=== PATIENT | male | born 1985 | race Caucasian/White ===

== ENCOUNTER 2020-07-26 03:31 | Emergency (ER) | payer MEDICAID, SELFPAY ==
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
[2020-07-26 03:42] VITALS: BP 141/84; BP 152/108; PULSE 106; PULSE 96; RESP 20; TEMP 37.3; O2SAT 95; O2SAT 97; BMI 23.2
--- NOTE | 2020-07-26 03:56 | PC.NURSE ---
Off to CT on hospital bed.
--- NOTE | 2020-07-26 04:07 | PC.NURSE ---
Off to XRay on hospital bed.
[2020-07-26] MEDS: Lidocaine HCl 2 % MPF 5 ML VIAL SUBCUT (04:31)
--- NOTE | 2020-07-26 04:37 | PC.NURSE ---
MD at bedside for wound repair, 1 suture applied to 5th finger on right hand. Pt medicated per MAR with Tetanus. licensed psychiatric technician at bedside to apply finger splint.
[2020-07-26] MEDS: Ibuprofen 600 MG TABLET PO (05:00)
[2020-07-26 05:01] VITALS: BP 127/85; PULSE 76; RESP 20
--- NOTE | 2020-07-26 05:09 | PC.NURSE ---
Pt medicated per request with Ibuprofen. VSS. Provided with DC paperwork.
== END 2020-07-26 05:11 | disposition home or self-care (01) ==
LOC: HO.ED 04:29
PROVIDERS: Emergency Provider Emergency Medicine; PCP Nurse Practitioner Primary Care
DX: S02.2XXA Fracture of nasal bones, initial encounter for closed fracture (principal); S60.512A Abrasion of left hand, initial encounter; S60.511A Abrasion of right hand, initial encounter; G44.309 Post-traumatic headache, unspecified, not intractable; Y04.8XXA Assault by other bodily force, initial encounter; Y93.9 Activity, unspecified; Y92.9 Unspecified place or not applicable; Y99.9 Unspecified external cause status; Z23 Encounter for immunization
CPT/HCPCS: 70450; 70486; 73130; 90471; 90715; 99284

== ENCOUNTER 2020-08-22 15:04 | Outpatient (REF) | payer MEDICAID, SELFPAY | END 2020-08-22 15:05 | disposition home or self-care (01) | LOC: HO.HOSX 15:04 | PROVIDERS: Visit Provider Orthopaedic Surgery | DX: Z13.89 Encounter for screening for other disorder (principal) ==

== ENCOUNTER 2020-09-02 18:53 | Emergency (ER) | payer MEDICAID, SELFPAY ==
[2020-09-02 19:05] VITALS: BP 137/91; PULSE 77; RESP 16; TEMP 36.6; O2SAT 98; BMI 23.2
== END 2020-09-02 20:19 | disposition left against medical advice (07) ==
PROVIDERS: Emergency Provider Emergency Medicine; PCP Nurse Practitioner Primary Care
DX: M79.641 Pain in right hand (principal)
CPT/HCPCS: 99282

== ENCOUNTER → 2020-09-06 13:25 | Outpatient (BNVA) | payer MEDICAID, SELFPAY | PROVIDERS: Visit Provider Orthopaedic Surgery | DX: M79.644 Pain in right finger(s) (principal); S63.601A Unspecified sprain of right thumb, initial encounter | CPT/HCPCS: 99202 ==

== ENCOUNTER 2021-02-03 12:01 | Emergency (ER) | payer MEDICAID, SELFPAY ==
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
[2021-02-03 12:11] VITALS: BP 153/87; PULSE 104; RESP 16; TEMP 37.1; O2SAT 95; BMI 23.1
[2021-02-03 12:19] VITALS: BP 142/98; PULSE 111; O2SAT 94
--- NOTE | 2021-02-03 12:36 | ED_ITS ---
HPI - Extremity Injury (Lower) General Chief Complaint: Extremity Injury, Lower Stated Complaint: right knee pain s/p fall Time Seen by Provider: 02/03/21 12:20 Source: patient Mode of arrival: ambulatory History of Present Illness HPI Narrative: 35-year-old male with a past medical history of ADD, ADHD, asthma, bipolar, substance abuse, s/p right knee arthroscopy, presenting to the ED complaining right knee pain s/p dancing last night and knee popping out of place, states friend relocated it. Admits this has happened in the past. Reports pain with bearing weight. Denies injury to other area, numbness, tingling, weakness complaint: knee injury Related Data Home Medications Medication Instructions Recorded Confirmed aripiprazole 2 mg tablet (Abilify) 2 mg PO DAILY 09/06/20 clonazepam 1 mg tablet (Klonopin) 1 mg PO BID 09/06/20 dextroamphetamine-amphetamine 30 30 mg PO BID 09/06/20 mg tablet (Adderall) paroxetine HCl [Paxil] PO 09/06/20 quetiapine 25 mg tablet (Seroquel) 25 mg PO DAILY 09/06/20 Previous Rx's Medication Instructions Recorded acetaminophen 500 mg tablet 500 mg PO Q6H PRN #20 tab 02/03/21 (Tylenol Extra Strength) ketorolac 10 mg tablet 10 mg PO TID PRN 5 Days #15 tab 02/03/21 Allergies Allergy/AdvReac Type Severity Reaction Status Date / Time codeine [CODEINE] Allergy Unknown HIVES Verified 09/02/20 19:03 Review of Systems Review of Systems: Constitutional: No Fever, No Chills Musculoskeletal: + joint pain, No Myalgias, + Joint Swelling Skin: No Skin Lesions, No rash Neuro: No Weakness, No Numbness, No Paresthesias Yes all other systems are reviewed and are negative [facility] Past Medical History Attestation statement: The following information was validated with the patient. 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 Exam Vital Signs: Vital Signs: Last Vital Signs Temp 98.8 F 02/03/21 12:11 Pulse 104 H 02/03/21 12:11 Resp 16 02/03/21 12:11 BP 153/87 H 02/03/21 12:11 Pulse Ox 95 02/03/21 12:11 Body Mass Index 23.1 Const: General: cooperative and healthy appearing Orientation/consciousness: patient oriented x3 Limitations: no limitations HENMT: Head: Yes normal to inspection Ears: hearing grossly normal bilaterally General nose exam: Normal external nose present Face and sinus: Yes normal facial exam Eyes: General: appearance normal, both eyes and all related structures EOM: EOMs intact bilaterally Neck: Neck: Yes normal visual inspection Resp: Effort & Inspection: normal respiratory effort and no respiratory distress Cardio: Rate: regular rate Peripheral pulses: dorsalis pedis present Skin: Rashes: no rashes Wounds: no wounds Neuro: General: patient oriented x3 Gait exam (Neuro): Normal gait present Extrem: Other: Right knee with notable swelling greater to medial aspect. Tender to palpation. Decreased flexion secondary to pain. Neurovascularly intact distally. No appreciable deformity. No erythema/warmth Course Course Course Narrative: XR knee RT 3V IMPRESSION: Right knee effusion. No significant bony abnormality identified. >> patient placed in knee immobilizer and supplied with crutches, is to follow- up with orthopedics MDM - Extremity Injury (Lower) MDM Narrative Medical decision making narrative: 35-year-old male with a past medical history of ADD, ADHD, asthma, bipolar, substance abuse, s/p right knee arthroscopy, presenting to the ED complaining right knee pain s/p dancing last night and knee popping out of place. On exam mildly tachycardic likely from pain, physical exam as above. Concern for possible knee dislocation/relocation vs l igamentous/tendon injury or meniscal injury. Rule out fracture Plan: X-rays, knee immobilizer/crutches, orthopedic follow-up Medical Records Attestation: I reviewed the patient's medical records. Discharge Plan Discharge Clinical Impression: Effusion of right knee Patient Disposition: Home, Self-Care Instructions: Swollen Knee Joint (ED) Additional Instructions: Your x-ray showed a knee effusion, wear knee immobilizer at home as needed, use crutches as needed Please follow-up with orthopedics Ketorolac is in anti-inflammatory/pain medication, take with food In addition take Tylenol If pain persist or worsen/becomes unbearable, please return to the ED Prescriptions: New ketorolac 10 mg tablet 10 mg PO TID PRN (Reason: pain) 5 Days Qty: 15 RF: 0 acetaminophen [Tylenol Extra Strength] 500 mg tablet 500 mg PO Q6H PRN (Reason: pain or fever) Qty: 20 RF: 0 Referrals: Leticia Marie PA-C [Physician [employer] Crusher And Washer] - 5 days
[2021-02-03] MEDS: Ketorolac Tromethamine 15 MG/ML VIAL 30 MG IM (13:22)
== END 2021-02-03 13:52 | disposition home or self-care (01) ==
PROVIDERS: Emergency Provider Emergency Medicine; PCP Nurse Practitioner Primary Care
DX: M25.461 Effusion, right knee (principal); M25.561 Pain in right knee
CPT/HCPCS: 73562; 99283; J1885

== ENCOUNTER 2021-04-08 10:22 | Emergency (ER) | payer MEDICAID, SELFPAY ==
[2021-04-08 10:27] VITALS: BP 142/96; PULSE 64; RESP 18; TEMP 36.8; O2SAT 98; BMI 21.7
[2021-04-08 12:15] LABS: MANUAL DIFF FLAG NO
[2021-04-08 12:16] LABS: Basophils Absolute Auto 0.1 X10*3/uL (0.0-0.2); Basophils Percent Auto 0.5 % (0-2); Eosinophils Absolute Auto 0.2 X10*3/uL (0.0-0.4); Eosinophils Percent Auto 1.2 % (0-4); Hematocrit 47.3 % (42.0-52.0); Hemoglobin 16.5 g/dl (14.0-18.0); Imm Gran Pct Auto 0.8 % (0.0-0.4); Lymphocytes Absolute Auto 3.3 X10*3/uL (1.2-4.9); Lymphocytes Percent Auto 25.6 % (20-40); Mean Corpuscular HGB Conc 34.9 g/dl (31.0-36.0); Mean Corpuscular Hemoglobin 31.4 pg (27.0-33.0); Mean Corpuscular Volume 90.1 fL (80.0-98.0); Monocytes Absolute Auto 1.3 X10*3/uL (0.1-1.2); Monocytes Percent Auto 10.5 % (2-11); Neutrophils Absolute Auto 7.83 x10*3/uL (2.0-8.3); Neutrophils Percent Auto 61.4 % (45-73); Platelet Count 413 X10*3/uL (160-400); Red Blood Count 5.25 X10*6/uL (4.60-5.80); Red Cell Distribution Width 12.6 % (11.0-16.0); White Blood Count 12.7 X10*3/uL (4.8-10.8)
[2021-04-08 12:18] LABS: Appearance Urine CLEAR; Color Urine YELLOW; Glucose Urine UA NEG (NEG); Leukocyte Esterase Urine NEG (NEG); Nitrite Urine NEG (NEG); Specific Gravity - Urine >= 1.030 (1.005-1.025); UACC Culture Trigger NO; Urine Blood TRACE (NEG); Urine Ketones NEG (NEG); Urine Protein 1+ MG/DL (NEG-TRACE)
[2021-04-08 12:31] LABS: Alanine Aminotransferase 12 U/L (0-40); Albumin Level 4.8 g/dL (3.5-5.0); Alkaline Phosphatase 91 U/L (39-117); Anion Gap 13 (12-20); Aspartate Amino Transferase 14 U/L (5-37); Bilirubin Direct 0.4 mg/dL (0.0-0.5); Bilirubin Total 1.2 mg/dL (0.0-1.0); Blood Urea Nitrogen 10 mg/dL (9-16); Calcium 10.1 mg/dL (8.4-10.2); Carbon Dioxide 29 mmol/L (22-29); Chloride 103 mmol/L (96-108); Creatinine Clr Calc Pharmacy 95.8; Estimated Glomerular Filt Rate > 60; Glucose Random 117 mg/dL (60-115); Lipase 64 U/L (8-78); Potassium 4.1 mmol/L (3.3-5.1); Sodium 141 mmol/L (135-145); Total Protein 7.6 g/dL (6.5-8.0)
[2021-04-08 12:37] LABS: Mucus Urine 1+ /LPF; RBC Urine 0 /HPF (0)
[2021-04-08 12:38] LABS: Amorphous Sediment Urine TRACE /LPF; WBC Urine 0-2 /HPF (0-4)
--- NOTE | 2021-04-08 12:56 | ED.ABDPAIN ---
HPI - Abdominal Pain General Chief Complaint: Abdominal Pain Stated Complaint: abd pain Time Seen by Provider: 04/08/21 12:08 Source: patient Mode of arrival: ambulatory Limitations: no limitations History of Present Illness HPI narrative: 35-year-old male here with complaints of generalized abdominal pain with 3 episodes of vomiting since last evening. No diarrhea, constipation, urinary symptoms, fevers, chills. Patient tells me ate some bad ham last night and since then he has had pain and vomiting. Related Data Home Medications Medication Instructions Recorded Confirmed aripiprazole 2 mg tablet (Abilify) 2 mg PO DAILY 09/06/20 clonazepam 1 mg tablet (Klonopin) 1 mg PO BID 09/06/20 dextroamphetamine-amphetamine 30 30 mg PO BID 09/06/20 mg tablet (Adderall) paroxetine HCl [Paxil] PO 09/06/20 quetiapine 25 mg tablet (Seroquel) 25 mg PO DAILY 09/06/20 Previous Rx's Medication Instructions Recorded acetaminophen 500 mg tablet 500 mg PO Q6H PRN #20 tab 02/03/21 (Tylenol Extra Strength) ketorolac 10 mg tablet 10 mg PO TID PRN 5 Days #15 tab 02/03/21 ondansetron HCl 4 mg tablet 4 mg PO Q8H PRN #10 tab 04/08/21 (Zofran) Allergies Allergy/AdvReac Type Severity Reaction Status Date / Time codeine [CODEINE] Allergy Unknown HIVES Verified 09/02/20 19:03 Review of Systems Review of Systems Yes all other systems are reviewed and are negative Constitutional: Reports no additional constitutional complaints, Denies body ache(s), Denies chills, Denies fever(s), Denies headache(s) and Denies weakness Eyes: Reports no additional eye complaints and Denies change in vision Reports system reviewed and no additional complaints, except as documented, Denies dizziness, Denies headache(s), Denies nasal congestion, Denies nasal discharge and Denies neck pain Cardiovascular: Reports no additional cardiovascular complaints, Denies chest pain, Denies leg edema and Denies dyspnea Respiratory: Reports no additional respiratory complaints, Denies cough and Denies dyspnea Gastrointestinal: Reports no additional gastrointestinal complaints, Reports abdominal pain, Denies diarrhea, Reports nausea and Reports vomiting Genitourinary: Denies urinary incontinence Musculoskeletal: Reports no additional musculoskeletal complaints, Denies back pain, Denies arthralgias, Denies joint swelling, Denies neck pain, Denies numbness and Denies tingling Skin/Breast: Reports system reviewed and no additional complaints, except as docu and Denies rash Reports system reviewed and no additional complaints, except as documented, Denies Abnormal speech present, Denies dizziness, Denies headache(s), Denies numbness, Denies tingling and Denies weakness Physical Exam Vital Signs: Vital Signs: Last Vital Signs Temp 98.2 F 04/08/21 10:27 Pulse 64 04/08/21 10:27 Resp 18 04/08/21 10:27 BP 142/96 H 04/08/21 10:27 Pulse Ox 98 04/08/21 10:27 Body Mass Index 21.7 Const: General: cooperative, healthy appearing, comfortable and no acute distress Orientation/consciousness: patient oriented x3 Limitations: no limitations HENMT: Head: Yes normal to inspection Ears: hearing grossly normal bilaterally General nose exam: Normal external nose present Face and sinus: Yes normal facial exam Mouth: Normal oral and palatal mucosa present Throat: Yes posterior oropharynx normal Eyes: General: appearance normal, both eyes and all related structures Pupils: Equal, round and reactive pupils present Neck: Neck: Yes normal visual inspection Chest: Chest palpation & inspection: normal inspection of the chest Resp: Effort & Inspection: normal respiratory effort Auscultation: clear to auscultation bilaterally Cardio: Rate: regular rate Rhythm: regular rhythm Peripheral pulses: Peripheral pulses 2+ throughout GI: Other: No focal tenderness Inspection: Yes normal to inspection Palpation (GI): Soft to palpation and nontender Auscultation: normal bowel sounds Back/Spine/Pelvis: Thoracic/Lumbar Spine: thoracic and lumbar spine normal to inspection Skin: General skin exam: no rashes or lesions noted Neuro: General: patient oriented x3, no focal motor deficits and normal sensation to monofilament Cranial nerves: Yes Equal, round and reactive pupils present Cognition (Neuro): normal cognition Speech: No Abnormal speech present Gait exam (Neuro): Normal gait present Motor exam (neuro): 5/5 motor strength present throughout Extrem: General: Yes normal to inspection Course Course Course Narrative: 35-year-old male here with diffuse abdominal pain and vomiting since last evening after eating some ham that was old. No focal tenderness on exam. Patient is well-appearing. Vitals are stable. Will check UA and labs. Provide GI cocktail and Zofran and reassessed 1330-labs unremarkable. Urine shows no acute finding. Patient is feeling improved after receiving Zofran and GI cocktail. Abdominal exam is unchanged. Reviewed worrisome signs and symptoms of when to return to the emergency department. Comfortable discharge home. MDM - Abdominal Pain MDM Narrative Medical decision making narrative: Less likely appendicitis with no focal abdominal pain, normal labs, no fever Medical Records Attestation: I reviewed the patient's medical records. Lab Data Attestation: I reviewed the patient's lab results. Result diagrams: 04/08/21 12:08 04/08/21 12:08 Labs: Lab Results 04/08/21 04/08/21 04/08/21 Range/Units 12:08 12:08 12:12 WBC 12.7 H (4.8-10.8) X10*3/uL RBC 5.25 (4.60-5.80) X10*6/uL Hgb 16.5 (14.0-18.0) g/dl Hct 47.3 (42.0-52.0) % MCV 90.1 (80.0-98.0) fL MCH 31.4 (27.0-33.0) pg MCHC 34.9 (31.0-36.0) g/dl RDW 12.6 (11.0-16.0) % Plt Count 413 H (160-400) X10*3/uL MPV 10.0 (9.4-12.4) fL Immature Gran % (Auto) 0.8 H (0.0-0.4) % Neut % (Auto) 61.4 (45-73) % Lymph % (Auto) 25.6 (20-40) % [place] % (Auto) 10.5 (2-11) % Eos % (Auto) 1.2 (0-4) % Baso % (Auto) 0.5 (0-2) % Lymph # (Auto) 3.3 (1.2-4.9) X10*3/uL [place] # (Auto) 1.3 H (0.1-1.2) X10*3/uL Eos # (Auto) 0.2 (0.0-0.4) X10*3/uL Baso # (Auto) 0.1 (0.0-0.2) X10*3/uL Abs Immat Gran (auto) 0.10 H (0.00-0.03) X10*3/uL Absolute Neuts (auto) 7.83 (2.0-8.3) x10*3/uL Absolute Nucleated RBC 0.000 (0.0-0.012) X10*3/uL Nucleated RBC % (auto) 0.0 (0.0-0.2) /100WBC Sodium 141 (135-145) mmol/L Potassium 4.1 (3.3-5.1) mmol/L Chloride 103 (96-108) mmol/L Carbon Dioxide 29 (22-29) mmol/L Anion Gap 13 (12-20) BUN 10 (9-16) mg/dL Creatinine 1.15 (0.5-1.4) mg/dL Estim Creat Clear Calc 95.8 Estimated GFR > 60 Random Glucose 117 H (60-115) mg/dL Calcium 10.1 (8.4-10.2) mg/dL Total Bilirubin 1.2 H (0.0-1.0) mg/dL Direct Bilirubin 0.4 (0.0-0.5) mg/dL AST 14 (5-37) U/L ALT 12 (0-40) U/L Alkaline Phosphatase 91 (39-117) U/L Total Protein 7.6 (6.5-8.0) g/dL Albumin 4.8 (3.5-5.0) g/dL Lipase 64 (8-78) U/L Urine Color YELLOW Urine Appearance CLEAR Urine pH 6.0 (5.0-8.0) Ur Specific [place] >= 1.030 H (1.005-1.025) Urine Protein 1+ H (NEG-TRACE) MG/DL Urine Glucose (UA) NEG (NEG) MG/DL Urine Ketones NEG (NEG) MG/DL Urine Blood TRACE (NEG) Urine Nitrite NEG (NEG) Ur Leukocyte Esterase NEG (NEG) Urine RBC 0 (0) /HPF Urine WBC 0-2 (0-4) /HPF Ur Squamous Epith Cells NONE /LPF Amorphous Sediment TRACE /LPF Urine Bacteria NONE /LPF Urine Mucus 1+ /LPF Discharge Plan Discharge Clinical Impression: Abdominal pain, Vomiting Patient Disposition: Home, Self-Care Instructions: Acute Nausea and Vomiting (ED), Abdominal Pain (ED) Additional Instructions: Start with clear liquids then advance diet as tolerated Prescriptions: New ondansetron HCl [Zofran] 4 mg tablet 4 mg PO Q8H PRN (Reason: nausea and vomiting) Qty: 10 RF: 0 No Action ketorolac 10 mg tablet 10 mg PO TID PRN (Reason: pain) 5 Days Qty: 15 RF: 0 acetaminophen [Tylenol Extra Strength] 500 mg tablet 500 mg PO Q6H PRN (Reason: pain or fever) Qty: 20 RF: 0 Referrals: Lore Preston ENGINEERING FACULTY MEMBER [Primary Care Provider] - 2 days Interventions: ED Discharge Assessment Last Done: 04/08/21 13:21 Discharge Date/Time: 04/08/21 13:21 [facility] Past Medical History Attestation statement: The following information was validated with the patient. 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
[2021-04-08] MEDS: Lidocaine HCl Viscous 2 % 15 ML SOLUTION MUCOUS MEM (13:07)
[2021-04-08] MEDS: Ondansetron ODT 4 MG TAB.RAPDIS TRANSLINGU (13:07)
[2021-04-08] MEDS: Magnesium Hydrox/Alum Hydrox 30 ML ORAL.SUSP PO (13:07)
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
== END 2021-04-08 13:21 | disposition home or self-care (01) ==
PROVIDERS: Emergency Provider Emergency Medicine; PCP Nurse Practitioner Primary Care
DX: R10.84 Generalized abdominal pain (principal); R11.10 Vomiting, unspecified
CPT/HCPCS: 36415; 80048; 80076; 81001; 83690; 85025; 99283

== ENCOUNTER 2023-02-13 14:18 | Outpatient (REF) | payer MEDICAID, SELFPAY ==
[2023-02-13 15:59] LABS: MANUAL DIFF FLAG NO
[2023-02-13 16:05] LABS: Basophils Absolute Auto 0.1 X10*3/uL (0.0-0.2); Basophils Percent Auto 0.8 % (0-2); Eosinophils Absolute Auto 0.1 X10*3/uL (0.0-0.4); Eosinophils Percent Auto 0.6 % (0-4); Hematocrit 48.9 % (42.0-52.0); Hemoglobin 16.6 g/dl (14.0-18.0); Imm Gran Abs Auto 0.06 X10*3/uL (0.00-0.03); Imm Gran Pct Auto 0.5 % (0.0-0.4); Lymphocytes Absolute Auto 4.1 X10*3/uL (1.2-4.9); Lymphocytes Percent Auto 34.5 % (20-40); Mean Corpuscular HGB Conc 33.9 g/dl (31.0-36.0); Mean Corpuscular Hemoglobin 30.2 pg (27.0-33.0); Mean Corpuscular Volume 89.1 fL (80.0-98.0); Mean Platelet Volume 10.1 fL (9.4-12.4); Monocytes Absolute Auto 0.9 X10*3/uL (0.1-1.2); Monocytes Percent Auto 7.7 % (2-11); Neutrophils Absolute Auto 6.6 x10*3/uL (2.0-8.3); Neutrophils Percent Auto 55.9 % (45-73); Platelet Count 479 X10*3/uL (160-400); Red Blood Count 5.49 X10*6/uL (4.60-5.80); Red Cell Distribution Width 13.2 % (11.0-16.0); White Blood Count 11.8 X10*3/uL (4.8-10.8)
[2023-02-13 16:08] LABS: Estimated Average Glucose 88 mg/dL; Hemoglobin A1c % 4.7 % (<6.0)
[2023-02-13 16:26] LABS: Alanine Aminotransferase 11 U/L (0-40); Albumin Level 4.8 g/dL (3.5-5.0); Alkaline Phosphatase 74 U/L (39-117); Anion Gap 11 (12-20); Aspartate Amino Transferase 15 U/L (5-37); Bilirubin Total 0.4 mg/dL (0.0-1.0); Blood Urea Nitrogen 19 mg/dL (9-16); Calcium 9.8 mg/dL (8.4-10.2); Carbon Dioxide 27 mmol/L (22-29); Chloride 107 mmol/L (96-108); Estimated Glomerular Filt Rate > 60; Glucose Random 92 mg/dL (60-115); Potassium 4.2 mmol/L (3.3-5.1); Sodium 141 mmol/L (135-145); Total Protein 7.5 g/dL (6.5-8.0)
[2023-02-13 16:41] LABS: TSH reflex Free T4 1.24 uIU/mL (0.32-4.0)
[2023-02-14 03:48] LABS: CT PCR NOT DETECTED (Not Detect.); NG PCR NOT DETECTED (Not Detect.)
[2023-02-14 04:48] LABS: Syphilis Screen Reactive (Nonreactive); ~HepC Num1 0.06 S/CO (0.00-0.79); ~Hepatitis C Antibody Nonreactive (Nonreactive)
[2023-02-14 04:48] LABS: HBS Num1 > 1000.00 mIU/mL (0-7.99); HBsAGNum1 0.39 S/CO (0.00-0.99); HIV AB/AG Nonreactive (Nonreactive); HIV Num 1 0.05 S/CO (0.00-0.99); Hepatitis B Core Antibody Nonreactive (Nonreactive); Hepatitis B Surface Antigen Negative (Negative); ~Hepatitis B Surface Antibody REACTIVE (Nonreactive)
[2023-02-20 15:04] LABS: RPR Quantitative Reactive 1:1 (Nonreactive); T.Pallidum Particle Agg Test Reactive (Nonreactive)
== END 2023-02-13 14:19 | disposition home or self-care (01) ==
LOC: HO.HHCL 14:18
PROVIDERS: Visit Provider Student in an Organized Health Care Education/Training Program
DX: Z00.00 Encounter for general adult medical examination without abnormal findings (principal); Z11.4 Encounter for screening for human immunodeficiency virus [HIV]; Z11.3 Encounter for screening for infections with a predominantly sexual mode of transmission
CPT/HCPCS: 0353U; 36415; 80053; 83036; 84443; 85025; 86592; 86704; 86706; 86780; 86803; 87340; 87389

== ENCOUNTER 2023-12-15 14:56 | Outpatient (REF) | payer MEDICAID, SELFPAY ==
[2023-12-15 16:25] LABS: Anion Gap 14 (12-20); Blood Urea Nitrogen 18 mg/dL (9-16); Calcium 10.1 mg/dL (8.4-10.2); Carbon Dioxide 27 mmol/L (22-29); Chloride 108 mmol/L (96-108); Cholesterol 190 mg/dL (<200); Estimated Glomerular Filt Rate > 60; Glucose Random 92 mg/dL (60-115); HDL Cholesterol 44 mg/dL (>40); Potassium 4.1 mmol/L (3.3-5.1); Sodium 145 mmol/L (135-145); Triglycerides 435 mg/dL (<150)
[2023-12-17 10:03] LABS: RPR Rapid Plasma Reagin REACTIVE (NON-REACTIVE)
== END 2023-12-15 14:57 | disposition home or self-care (01) ==
LOC: HO.HHCL 14:56
PROVIDERS: Visit Provider Nurse Practitioner Primary Care
DX: Z00.00 Encounter for general adult medical examination without abnormal findings (principal); R21 Rash and other nonspecific skin eruption; I10 Essential (primary) hypertension
CPT/HCPCS: 36415; 80048; 80061; 86592; 86593

== ENCOUNTER 2023-12-15 15:35 | Outpatient (REF) | payer MEDICAID, SELFPAY ==
[2023-12-15 16:40] LABS: Creatinine Urine 115.57 mg/dL; Microalbum/Creatinine Ratio Ur 7.7 ug/mg cr (<30)
== END 2023-12-15 15:36 | disposition home or self-care (01) ==
LOC: HO.HHCL 15:35
PROVIDERS: Visit Provider Nurse Practitioner Primary Care
DX: Z00.00 Encounter for general adult medical examination without abnormal findings (principal); I10 Essential (primary) hypertension; R21 Rash and other nonspecific skin eruption
CPT/HCPCS: 36415; 80048; 80061; 82043; 82570; 86592; 86593

== ENCOUNTER 2024-01-05 14:43 | Outpatient (REF) | payer MEDICAID, SELFPAY ==
[2024-01-05 16:27] LABS: Cholesterol 203 mg/dL (<200); HDL Cholesterol 41 mg/dL (>40); LDL Cholesterol Calculated 122 mg/dL (<100); Triglycerides 204 mg/dL (<150)
[2024-01-07 14:08] LABS: RPR Rapid Plasma Reagin REACTIVE (NON-REACTIVE)
== END 2024-01-05 14:44 | disposition home or self-care (01) ==
LOC: HO.HHCL 14:43
PROVIDERS: Visit Provider Nurse Practitioner Primary Care
DX: E78.1 Pure hyperglyceridemia (principal); Z86.19 Personal history of other infectious and parasitic diseases
CPT/HCPCS: 36415; 80061; 86592; 86593

== ENCOUNTER 2024-03-06 08:12 | Emergency (ER) | payer MEDICAID, SELFPAY ==
[2024-03-06 08:26] VITALS: BP 140/76; BP 142/96; PULSE 105; PULSE 92; RESP 18; TEMP 37.1; O2SAT 100; O2SAT 96; BMI 23.1
--- NOTE | 2024-03-06 09:09 | ED_ITS ---
HPI - General Adult General Chief complaint: Dental/Oral Stated complaint: EAR ACHE Time Seen by Provider: 03/06/24 08:27 Source: patient and EMS Mode of arrival: EMS Limitations: no limitations History of Present Illness HPI narrative: Patient is a 38-year-old male who presents emergency department via EMS for evaluation. Patient reports that he cut into a verbal altercation with his significant other last night. He states that around 21:30 yesterday evening he had drank a six-pack of [employer] beer. After the verbal altercation he decided to leave the house. He reports he decided to lie down on a bench outside, he felt his restless legs kicking in, for which he took 2 Klonopin for. He states that he experiences restless legs very infrequently, and although his Klonopin as prescribed for his anxiety usually resolves his restless legs. He reports around 0100 he developed pain to the right side of his mouth radiating to his ear. This has been ongoing for some time now. He states that he knows that he needs teeth extracted on the right side of his mouth but he had a traumatic experience in the past and will only have extraction performed if he is ?put to sleep?. He states he is currently on a waiting list to be evaluated by a dental provider. He denies any foul taste to the mouth, hot or cold sensitivity currently, no painful swallowing. Denies associated fevers or chills. No neck pain or chest pain. Related Data Home Medications ?Medication ?Instructions ?Recorded ?Confirmed aripiprazole 2 mg tablet (Abilify) 2 mg PO DAILY 09/06/20 clonazepam 1 mg tablet (Klonopin) 1 mg PO BID 09/06/20 dextroamphetamine-amphetamine 30 30 mg PO BID 09/06/20 mg tablet (Adderall) paroxetine HCl [Paxil] PO 09/06/20 quetiapine 25 mg tablet (Seroquel) 25 mg PO DAILY 09/06/20 Previous Rx's ?Medication ?Instructions ?Recorded acetaminophen 500 mg tablet 500 mg PO Q6H PRN pain or fever 02/03/21 (Tylenol Extra Strength) #20 tabs ketorolac 10 mg tablet 10 mg PO TID PRN pain 5 days #15 02/03/21 tabs ondansetron HCl 4 mg tablet 4 mg PO Q8H PRN nausea and 04/08/21 (Zofran) vomiting #10 tabs amoxicillin 875 mg-potassium 1 tab PO BID #13 tabs 03/06/24 clavulanate 125 mg tablet chlorhexidine gluconate 0.12 % 15 ml mucous membrane BID #1,893 mL 03/06/24 mouthwash ibuprofen 600 mg tablet 600 mg PO Q8H PRN fever or pain 03/06/24 #30 tabs Allergies Allergy/AdvReac Type Severity Reaction Status Date / Time codeine [CODEINE] Allergy Unknown HIVES Verified 03/06/24 08:30 Review of Systems Review of Systems: Yes all other systems are reviewed and are negative PMFSH Past Medical History Attestation statement: The following information was validated with the patient. 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 Oriented X3. No acute distress. Head: Normal external exam. Normocephalic. Atraumatic. Eyes: PERRLA. EOMI. Conjunctiva and sclera normal. Eyelids normal. ENT: EAC normal. TM's Normal. Pharynx normal. Uvula midline. Moist mucous membranes.? ?No trismus noted.? No drooling noted.? No muffled voice noted. Dentition:? Patient with poor dentition throughout with multiple old fractured teeth with multiple dental caries.? Gingival within normal limits.? No fluctuance.? Not consistent with peritonsillar abscess. Not consistent with dental abscess.? No salivary duct obstruction noted. Neck: Normal inspection. Neck supple. FROM. No adenopathy. Thyroid Normal. No meningeal signs. No neck mass noted.? Trachea midline. CVS: Normal heart rate and rhythm. Heart sound normal. No murmurs noted. Pulses normal throughout. Respiratory: No respiratory distress. Painless inspiration. Breath sounds normal. No wheezes/rales/rhonchi noted. Chest nontender. ?No accessory muscle usage noted or decreased air movement noted. Back:? Full range of motion noted. Skin: Skin warm and dry.? Normal skin color.? Normal skin turgor. No rashes/lesions/lacerations noted. Extremities: Extremities exhibit normal range of motion.? Extremities nontender. Neuro: Oriented X 3.? No motor deficit.? No sensory deficit.? Reflexes normal. Medical Decision Making Medical Decision Making MDM Narrative: Patient is a 38-year-old male past medical history of Bipolar disorder, ADHD, asthma, substance use disorder presenting to emergency department for evaluation of right-sided dental pain radiating to the right ear. Overall he is well- appearing, nontoxic, afebrile. He is ambulatory with a steady gait. Conscious alert and oriented x3. No focal neurological deficits. On evaluation of his oropharynx, he has erythematous gingiva, and multiple dental caries, no obvious abscess or areas of fluctuance. His TM is normal bilaterally, has no associated mastoid tenderness. No soft tissue swelling of the neck. Lower suspicion for dental abscess, Earl's angina. Does have a notably exuberant affect, though he does not appear to be acutely intoxicated or dysregulated. This time I feel that he is stable for discharge. Differential Diagnosis Differential Diagnoses: The differential diagnosis associated with the presentation includes (See narrative above) Independent Historian Clinical information obtained from an independent historian. History obtained from or confirmed by: EMS External Record Review External record reviewed: Outpatient record Tests considered The following testing was considered but not selected: No suspicion for dental abscess, RPA, mastoiditis would defer CT imaging Prescription Management I considered prescription management with: Pain Medication and Antibiotic Social Determinants Patient?s care significantly limited by Social Determinants of Health including: Other Social Determinant of Health (Polysubstance use disorder) Discharge Plan Discharge Clinical Impression: Dental caries Patient Disposition: Home, Self-Care Instructions: Toothache (ED) Additional Instructions: You can take ibuprofen 200 mg, 3 tablets (600mg) every 6-8 hours as needed for pain, in addition to Tylenol 500 mg, 2 tablets (1,000mg) every 4-6 hours as needed for pain, but not to exceed 3 doses daily (3,000mg).? Complete the entire course of antibiotics as prescribed. Do not skip any doses or stopped taking early. As discussed, it is very important that you follow-up with your dental provider regarding the multiple cavities that you have and redness of your gums. You may require extraction/removal of some of your teeth as discussed. Prescriptions: New amoxicillin-pot clavulanate 875-125 mg tablet 1 tab PO BID Qty: 13 0RF ibuprofen 600 mg tablet 600 mg PO Q8H PRN (Reason: fever or pain) Qty: 30 0RF chlorhexidine gluconate 0.12 % mouthwash 15 ml mucous membrane BID Qty: 1893 0RF No Action ketorolac 10 mg tablet 10 mg PO TID PRN (Reason: pain) 5 Days Qty: 15 0RF acetaminophen [Tylenol Extra Strength] 500 mg tablet 500 mg PO Q6H PRN (Reason: pain or fever) Qty: 20 0RF ondansetron HCl [Zofran] 4 mg tablet 4 mg PO Q8H PRN (Reason: nausea and vomiting) Qty: 10 0RF Referrals: [facility] [Primary Care Provider] - Print Language: French
[2024-03-06] MEDS: Ibuprofen 600 MG TABLET PO (09:43)
[2024-03-06] MEDS: Amoxicillin/Potassium Clav 875 MG TABLET PO (09:43)
[2024-03-06 09:46] VITALS: BP 142/96; PULSE 105; RESP 18; TEMP 37.1; O2SAT 96
== END 2024-03-06 09:47 | disposition home or self-care (01) ==
PROVIDERS: Emergency Provider Emergency Medicine Emergency Medical Services
DX: K02.9 Dental caries, unspecified (principal); K08.89 Other specified disorders of teeth and supporting structures
CPT/HCPCS: 99283

== ENCOUNTER 2024-12-29 16:06 | Outpatient (REF) | payer MEDICAID, SELFPAY ==
--- OUTSIDE RECORDS SUMMARY | 2024-12-29 16:10 | XMS_ITS | Encounter Summary ---
Author Organization [employer] Address [address] [place] [address] 7 [place] [address] Care Team Providers Care Solar Technician Name Role Phone Lore Preston Primary Care Provider [phone] Reason for Visit * Reason Comments Med Refill Encounter Details Date Type Department Care Team (Late st Contact Info) Description 02/20/2023 Refill [facility] [address] [place] [address] Concepcion Harrington MD [address] [place] [address] Social History Tobacco Use Types Packs/Day Years Used Date Smoking Tobacco: Every Day Cigarettes Smokeless Tobacco: Never Sex and Gender Information Value Date Recorded Sex Assigned at Male 04/08/2022 10:35 AM EDT Legal Sex Male 10:35 AM EDT Gender Identity Male 04/08/2022 10:35 AM EDT Sexual Orientation Berg 02/21/2023 1: 04 AM EDT documented as of this encounter Plan of Treatment Not on file documented as of this encounter Visit Diagnoses Not on filedocumented in this encounter Care Teams Solar Technician Relationship Specialty Start Date End Date Lore Preston ANP [address] [place] [id number] PCP - General Family Medicine 04/24/20 documented as of this encounter
[2024-12-29 17:41] LABS: MANUAL DIFF FLAG NO
[2024-12-29 17:46] LABS: Hematocrit 44.4 % (42.0-52.0); Hemoglobin 15.3 g/dl (14.0-18.0); Imm Gran Abs Auto 0.10 X10*3/uL (0.00-0.03); Imm Gran Pct Auto 0.8 % (0.0-0.4); Lymphocytes Absolute Auto 4.7 X10*3/uL (1.2-4.9); Mean Corpuscular HGB Conc 34.5 g/dl (31.0-36.0); Mean Corpuscular Hemoglobin 30.8 pg (27.0-33.0); Mean Corpuscular Volume 89.5 fL (80.0-98.0); NRBC Abs Auto 0.000 X10*3/uL (0.0-0.012); NRBC Pct Auto 0.0 /100WBC (0.0-0.2); Platelet Count 453 X10*3/uL (160-400); Red Blood Count 4.96 X10*6/uL (4.60-5.80); White Blood Count 12.8 X10*3/uL (4.8-10.8)
[2024-12-29 18:11] LABS: Cholesterol 193 mg/dL (<200); HDL Cholesterol 47 mg/dL (>40); Triglycerides 246 mg/dL (<150)
== END 2024-12-29 16:07 | disposition home or self-care (01) ==
LOC: HO.HHCL 16:06
PROVIDERS: PCP Nurse Practitioner Primary Care; Visit Provider Nurse Practitioner Primary Care
DX: E78.1 Pure hyperglyceridemia (principal); R21 Rash and other nonspecific skin eruption
CPT/HCPCS: 36415; 80061; 85025

== ENCOUNTER 2025-06-07 09:27 | Emergency (ER) | payer MEDICAID, SELFPAY ==
[2025-06-07 09:42] VITALS: BP 162/98; PULSE 116; O2SAT 95
[2025-06-07 09:56] VITALS: BP 158/92; PULSE 103; RESP 16; TEMP 36.8; O2SAT 97; BMI 24.4
--- NOTE | 2025-06-07 10:13 | ED_ITS ---
HPI - General Adult General Chief complaint: Psychiatric Symptoms Stated complaint: SI Time Seen by Provider: 06/07/25 09:37 Source: patient and EMS Mode of arrival: EMS Limitations: no limitations History of Present Illness ED Provider: HPI narrative: 39-year-old male endorses making SI statements at home for [place] now, but now denies SI, he states he was drinking last night and has depression to call his regular medications, and was really upset we will have them in his mother's exchange some words and she stated that you are to me . Denies HI, denies any other drug use. Related Data Home Medications ?Medication ?Instructions ?Recorded ?Confirmed aripiprazole 2 mg tablet (Abilify) 2 mg PO DAILY 09/06 clonazepam 1 mg tablet (Klonopin) 1 mg PO BID 09/06/20 dextroamphetamine-amphetamine 30 30 mg PO BID 09/06/20 mg tablet (Adderall) paroxetine HCl [Paxil] PO 09/06/20 quetiapine 25 mg tablet (Seroquel) 25 mg PO DAILY 08/09 06/29 Previous Rx's ?Medication ?Instructions ?Recorded acetaminophen 500 mg tablet 500 mg PO Q6H PRN pain or fever 02/03/21 (Tylenol Extra Strength) #20 tabs ketorolac 10 mg tablet 10 mg PO TID PRN pain 5 days #15 02/03/21 tabs ondansetron HCl 4 mg tablet 4 mg PO Q8H PRN nausea and 04/08/21 (Zofran) vomiting #10 tabs amoxicillin 875 mg-potassium 1 tab PO BID #13 tabs clavulanate 125 mg tablet chlorhexidine gluconate 0.12 % 15 ml mucous membrane B ID #1,893 mL 03/06/24 mouthwash ibuprofen 600 mg tablet 600 mg PO Q8H PRN fever or p ain 03/06/24 #30 tabs Allergies Allergy/AdvReac Type Severity Reaction Status Date / Time codeine (CODEINE) Allergy Unknown HIVES Verified 06/07/25 09:59 Review of Systems 2 Constitutional: Constitutional: Reports as per [facility] Past Medical History Medical History Substance abuse Bipolar 1 disorder ADD (attention deficit disorder) ADHD Asthma Surgical History S/P right knee arthroscopy Social History Social History Alcohol intake: current Advance Directives: No Advance Directives Information Provided: Yes Do you have a plan to hurt others: No Plan Current occupational status: employed 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 ED Exam Exam: ?General: ??looks age appropriate ?CV: RRR, no obvious murmurs appreciated ?Resp: ?No wheezing rales rhonchi no stridor moving air well Abd: ?Bowel sounds are present, no tenderness no rebound no rigidity MSK: FROM, strength 5/5 all extremities Skin: Warm, dry, intact, ?Neuro: ?Alert and oriented x3, moving upper and lower extremities symmetrically, no obvious facial asymmetry noted, cranial nerves 2-12 intact Psych: No active SI, no HI, patient is tearful, good eye contact Vital Signs: Vital Signs - 24 hr 06/07/25 09:56 Temperature 98.3 F Pulse Rate 103 H Respiratory Rate 16 Blood Pressure 158/92 H Pulse Oximetry 97 Oxygen Delivery Method Room Air BMI result Body Mass Index 24.4 Medications Administered Discontinued Medications Generic Name Dose Route Start Last Admin Trade Name Freq PRN Reason Stop Dose Admin Clonazepam 1 mg 06/07/25 10:14 06/07/25 11:19 Clonazepam 1 Mg Tablet PO 06/07/25 10:15 1 mg ONCE ONE Administration Medical Decision Making Medical Decision Making MDM Narrative: 10:18 AM 06/07/2025 (Dr. Cj Farris): We will have patient evaluated by crisis, he was making SI statements yesterday, currently states he is not suicidal, we will make sure he is clinically sober I believe that alcohol likely contributed to his presentation to the emergency department, did not endorse any other drug use, and states takes his medications only on regular basis and did not try to OD on any of his regular medications. 12:08 PM 06/07/2025 (Dr. Cj Farris): We will be discharged on a safety plan Differential Diagnosis Differential Diagnoses: The differential diagnosis associated with the presentation includes (SI, HI, substance use disorder, trauma) Admission/Observation Consideration of admission/observation: Escalation of care including admission/observation considered Lab Data 06/07/25 10:45 06/07/25 10:45 Labs: Lab Results 06/07/25 Range/Units 10:45 WBC 16.0 H (4.8-10.8) X10*3/uL RBC 5.13 (4.60-5.80) X10*6/uL Hgb 15.9 (14.0-18.0) g/dl Hct 45.5 (42.0-52.0) % MCV 88.7 (80.0-98.0) fL MCH 31.0 (27.0-33.0) pg MCHC 34.9 (31.0-36.0) g/dl RDW 13.0 (11.0-16.0) % Plt Count 463 H (160-400) X10*3/uL MPV 9.5 (9.4-12.4) fL Immature Gran % (Auto) 1.5 H (0.0-0.4) % Neut % (Auto) 58.8 (45-73) % Lymph % (Auto) 29.6 (20-40) % [place] % (Auto) 9.4 (2-11) % Eos % (Auto) 0.1 (0-4) % Baso % (Auto) 0.6 (0-2) % Lymph # (Auto) 4.7 (1.2-4.9) X10*3/uL [place] # (Auto) 1.5 H (0.1-1.2) X10*3/uL Eos # (Auto) 0.0 (0.0-0.4) X10*3/uL Baso # (Auto) 0.1 (0.0-0.2) X10*3/uL Abs Immat Gran (auto) 0.24 H (0.00-0.03) X10*3/uL Absolute Neuts (auto) 9.4 H (2.0-8.3) x10*3/uL Absolute Nucleated RBC 0.000 (0.0-0.012) X10*3/uL Nucleated RBC % (auto) 0.0 (0.0-0.2) /100WBC Smear Tech's Comments VERIFIED Sodium 145 (135-145) mmol/L Potassium 3.7 (3.3-5.1) mmol/L Chloride 108 (96-108) mmol/L Carbon Dioxide 26 (22-29) mmol/L Anion Gap 15 (12-20) BUN 11 (9-16) mg/dL Creatinine 0.89 (0.5-1.4) mg/dL Estim Creat Clear Calc 123.5 Estimated GFR > 60 Random Glucose 78 (60-115) mg/dL Calcium 9.2 D (8.4-10.2) mg/dL Total Bilirubin 0.6 (0.0-1.0) mg/dL AST 33 (5-37) U/L ALT 30 (0-40) U/L Alkaline Phosphatase 78 (39-117) U/L Total Protein 7.7 (6.5-8.0) g/dL Albumin 5.2 H (3.5-5.0) g/dL Urine Opiates Screen Not Detected (Not Detect) Ur Buprenorphine Scrn Not Detected (Not Detect) ng/mL Ur Oxycodone Screen Not Detected (Not Detect) ng/mL Urine Methadone Screen Not Detected (Not Detect) ng/mL Urine Fentanyl Screen Not Detected (Not Detect) Ur Barbiturates Screen Not Detected (Not Detect) Ur Phencyclidine Scrn Not Detected (Not Detect) Ur Amphetamines Screen Not Detected (Not Detect) U Benzodiazepines Scrn Not Detected (Not Detect) Urine Cocaine Screen POSITIVE H (Not Detect) U Marijuana (THC) Screen POSITIVE H (Not Detect) Ethyl Alcohol 168 mg/dL Discharge Plan Discharge Clinical Impression: Suicidal ideation, Alcohol intoxication Additional Instructions: You were seen in our Emergency Department today for treatment of a behavioral health issue. It is important after your visit that you follow up with either your behavioral health provider or a primary care doctor within 7 days.? If you have trouble finding a therapist you can reach out to [address] [phone] The National Suicide and Crisis Lifeline can be reached 7 days a week 24 hours a day.? Call 988 to speak with someone.? Return for any worsening symptoms or concerns such as thoughts of self harm or harm to others. Please call 911 if you feel your mental health is worsening.? Prescriptions: No Action ketorolac 10 mg tablet 10 mg PO TID PRN (Reason: pain) 5 Days Qty: 15 0RF acetaminophen [Tylenol Extra Strength] 500 mg tablet 500 mg PO Q6H PRN (Reason: pain or fever) Qty: 20 0RF ondansetron HCl [Zofran] 4 mg tablet 4 mg PO Q8H PRN (Reason: nausea and vomiting) Qty: 10 0RF amoxicillin-pot clavulanate 875-125 mg tablet 1 tab PO BID Qty: 13 0RF ibuprofen 600 mg tablet 600 mg PO Q8H PRN (Reason: fever or pain) Qty: 30 0RF chlorhexidine gluconate 0.12 % mouthwash 15 ml mucous membrane BID Qty: 1893 0RF Print Language: Nepali
[2025-06-07 10:58] LABS: Hematocrit 45.5 % (42.0-52.0); Hemoglobin 15.9 g/dl (14.0-18.0); Imm Gran Abs Auto 0.24 X10*3/uL (0.00-0.03); Imm Gran Pct Auto 1.5 % (0.0-0.4); Lymphocytes Absolute Auto 4.7 X10*3/uL (1.2-4.9); MANUAL DIFF FLAG SCAN; Mean Corpuscular HGB Conc 34.9 g/dl (31.0-36.0); Mean Corpuscular Hemoglobin 31.0 pg (27.0-33.0); Mean Corpuscular Volume 88.7 fL (80.0-98.0); NRBC Abs Auto 0.000 X10*3/uL (0.0-0.012); NRBC Pct Auto 0.0 /100WBC (0.0-0.2); Platelet Count 463 X10*3/uL (160-400); Red Blood Count 5.13 X10*6/uL (4.60-5.80); SCAN SMEAR FLAG 1; White Blood Count 16.0 X10*3/uL (4.8-10.8)
[2025-06-07 11:03] LABS: Cannabinoid Screen Urine POSITIVE (Not Detect)
[2025-06-07 11:09] LABS: Alanine Aminotransferase 30 U/L (0-40); Albumin Level 5.2 g/dL (3.5-5.0); Alkaline Phosphatase 78 U/L (39-117); Anion Gap 15 (12-20); Aspartate Amino Transferase 33 U/L (5-37); Blood Urea Nitrogen 11 mg/dL (9-16); Calcium 9.2 mg/dL (8.4-10.2); Carbon Dioxide 26 mmol/L (22-29); Chloride 108 mmol/L (96-108); Creatinine Clr Calc Pharmacy 123.5; Estimated Glomerular Filt Rate > 60; Potassium 3.7 mmol/L (3.3-5.1); Sodium 145 mmol/L (135-145); Total Protein 7.7 g/dL (6.5-8.0)
--- NOTE | 2025-06-07 12:37 | MHC.CARE ---
Patient evaluated by the CARE Team, he does not require an inpatient psychiatric admission at this time. Provider, Dr. Farris updated and in agreement with plan to discharge home.
[2025-06-07 12:49] VITALS: BP 158/92; PULSE 103; RESP 16; TEMP 36.8; O2SAT 97
--- OUTSIDE RECORDS SUMMARY | 2025-06-07 14:24 | XMS_ITS | Encounter Summary ---
Author Organization [employer] Address [address] [place] [address] 7 [place] [address] Care Team Providers Care Claims Counsel Name Role Phone Lore Preston Primary Care Provider [phone] Reason for Visit * Reason Onset Date Comments Med Refill 04/26/2024 Encounter Details Date Type Department Care Team ([facility] st Contact Info) Description 04/26/2024 Telephone [facility] [address] [place] [address] Lore Preston ANP [address] [place] [address] Med Refill Social History Tobacco Use Types Packs/Day Years Used Date Smoking Tobacco: Every Day Cigarettes Passive Smoke Exposure: Current Smokeless Tobacco: Never Sex and Gender Information Value Date Recorded Sex Assigned at Male 04/08/2022 10:35 AM EDT Legal Sex Male 10:35 AM EDT Gender Identity Male 04/08/2022 10:35 AM EDT Sexual Orientation Berg 02/21/2023 1 :04 AM EDT documented as of this encounter Miscellaneous Notes * Telephone Encounter - Penny Walden LPN - 04/26/2024 3:07 PM EST [facility] review request.medication are not pended as [facility] has Mary Ann Blanco as prescriber * Telephone Encounter - Siddhartha Blanco - 04/26/2024 2:42 PM EST TC from pt requesting medication refill. Medications needing refill : amphetamine-dextroamphetamine (Adderall) 30 MG tablet FLUoxetine (PROzac) 20 MG capsule ARIPiprazole (Abilify) 5 MG tablet To be sent to: [facility] - [place], [place] - [address] [facility] [place] documented in this encounter Plan of Treatment Not on file documented as of this encounter Visit Diagnoses Not on filedocumented in this encounter Care Teams Claims Counsel Relationship Specialty Start Date End Date Lore Preston ANP [address] [facility] [place] [address] PCP - General Family Medicine 04/24/20 documented as of this encounter
--- OUTSIDE RECORDS SUMMARY | 2025-06-07 14:24 | XMS_ITS | Encounter Summary ---
Author Organization [employer] Address [address] [place] [address] [address] [place] [address] Care Team Providers Care Industrial Ecologist Name Role Phone Lore Preston Primary Care Provider [phone] Reason for Visit * Reason Onset Date Comments Med Refill 08/31/2024 Encounter Details Date Type Department Care Team (Late st Contact Info) Description 08/31/2024 Refill [facility] [address] [place] [address] Keyona Barber MD [address] [place] [address] Attention deficit hyperactivity disorder, combined type; Insomnia, unspecified type; Anxiety Social History Tobacco Use Types Packs/Day Years [...] documented as of this encounter Visit Diagnoses Diagnosis Attention deficit hyperactivity disorder, combined type Attention deficit disorder with hyperactivity Insomnia, unspecified type Anxiety Anxiety state, unspecified documented in this encounter Care Teams Industrial Ecologist Relationship Specialty Start Date End Date Lore Preston ANP [address] [place] [address] PCP - General Family Medicine 04/24/20 documented as of this encounter
--- OUTSIDE RECORDS SUMMARY | 2025-06-07 14:24 | XMS_ITS | Encounter Summary ---
Author Organization [employer] Address [address] [place] [address] [address] [place] [address] Care Team Providers Care Molder Trimmer Name Role Phone Lore Preston Primary Care Provider [phone] Reason for Visit * Reason Onset Date Comments Med Refill 04/26/2024 Encounter Details Date Type Department Care Team ([facility] st Contact Info) Description 04/26/2024 Telephone [facility] [address] [place] [address] Lore Preston ANP [address] [place] [address] Med Refill Social History Tobacco Use Types [...] encounter Miscellaneous Notes * Telephone Encounter - Siddhartha Blanco - 04/26/2024 2:46 PM EST TC from pt requesting medication refill. Medications needing refill : clonazePAM (KlonoPIN) 1 MG tablet To be sent to: [facility] - [place], [place] - [address] [facility] documented in this encounter Plan of Treatment Not on file documented as of this encounter Visit Diagnoses Not on filedocumented in this encounter Care Teams Molder Trimmer Relationship Specialty Start Date End Date Lore Preston ANP [address] [place] [address] PCP - General Family Medicine 04/24/20 documented as of this encounter
--- OUTSIDE RECORDS SUMMARY | 2025-06-07 14:24 | XMS_ITS | Encounter Summary ---
Author Organization [employer] Address [address] [place] [address] [address] [place] [address] Care Team Providers Care Cellular Plastics Cutter Name Role Phone Lore Preston Primary Care Provider [phone] Reason for Visit * Reason Comments Med Refill Encounter Details Date Type Department Care Team (Late st Contact Info) Description 02/20/2023 Refill [facility] [address] [place] [address] Concepcion Harrington MD [address] [place] [address] Social History Tobacco Use Types Packs/Day Years [...] on filedocumented in this encounter Care Teams Cellular Plastics Cutter Relationship Specialty Start Date End Date Lore Preston ANP [address] [place] [address] PCP - General Family Medicine 04/24/20 documented as of this encounter
--- OUTSIDE RECORDS SUMMARY | 2025-06-07 14:24 | XMS_ITS | Encounter Summary ---
Author Organization [employer] Address [address] [place] [address] [address] [place] [address] Care Team Providers Care Aviation Survival Technician Name Role Phone Mohan Lore KRISHNAMURTHY Primary Care Provider [phone] Reason for Visit * Reason Comments Med Refill Encounter Details Date Type Department Care Team (Late st Contact Info) Description 08/30/2024 Refill [facility] [address] [place] [address] Shantell Carr MD [address] [place] [address] Mood disorder (CMS/HCC) Social History Tobacco Use Types Packs/Day Years [...] encounter Miscellaneous Notes * Telephone Encounter - OLIVE Collazo - 08/31/2024 11:54 AM EDT Leobardo Doyle, I saw this pt on 08/12/24. He should have been scheduled for 2 weeks to f/u on his meds. When checking his chart I don't see a f/u scheduled with me. documented in this encounter Plan of Treatment Not on file documented as of this encounter Visit Diagnoses Diagnosis Mood disorder (CMS/HCC) Unspecified episodic mood disorder documented in this encounter Care Teams Aviation Survival Technician Relationship Specialty Start Date End Date Lore Preston ANP [address] [place] [address] PCP - General Family Medicine 04/24/20 documented as of this encounter
--- OUTSIDE RECORDS SUMMARY | 2025-06-07 14:24 | XMS_ITS | Encounter Summary ---
Author Organization [employer] Address [address] [facility] 7 [place] [address] Care Team Providers Care Information Systems Project Manager Name Role Phone Lore Preston Primary Care Provider [phone] Reason for Visit * Reason Onset Date Comments Med Refill 12/28/2024 Encounter Details Date Type Department Care Team ([facility] st Contact Info) Description 12/28/2024 Refill [facility] MEDICINE [address] [place] [address] Lore Preston ANP [address] [place] [address] Mood disorder (CMS/HCC); Essential hypertension; Vitamin D deficiency; Skin rash Social History Tobacco Use Types Packs/Day Years Used Date Smoking Tobacco: Every Day Cigarettes Passive Smoke Exposure: Current Smokeless Tobacco: Never Housing Stability Answer Date Recorded What is your housing situation today? I have trey oro 12/29/[address] you li ve. Do you have problems with any of the following? None of the above 12/29/2024 Food Insecurity Answer Date Recorded Within the past 12 months, y ou worried that your food would run out before you got money to buy more: Never True 12/29/2024 Within the past 12 months,th e food you bought just didn't last and you didn't have enough money to get more: Never True Transportation Answer Date Recorded In the past 12 months, has l ack of transportation kept you from medical appts, meetings, work or from getting things needed for daily living? No 12/29/2024 Utilities Answer Date Recorded In the past 12 months, has t he electric, gas, oil or water company threatened to shut off services in your home? No 12/29/2024 Internet Access Answer Date Recorded Internet Access Q1 Yes 12/29/2024 Internet Access Q2 Not on file 12/29/2024 Sex and Gender Information Value Date Recorded Sex Assigned at Male 04/08/2022 10:35 AM EDT Legal Sex Male 10:35 AM EDT Gender Identity Male 04/08/2022 10:35 AM EDT Sexual Orientation Berg 02/21/2023 1: 04 AM EDT documented as of this encounter Plan of Treatment Not on file documented as of this encounter Visit Diagnoses Diagnosis Mood disorder (CMS/HCC) Unspecified episodic mood disorder Essential hypertension Unspecified essential hypertension Vitamin D deficiency Skin rash Rash and other nonspecific skin eruption documented in this encounter Care Teams Information Systems Project Manager Relationship Specialty Start Date End Date Lore Preston ANP [address] [place] [address] PCP - General Family Medicine 04/24/20 documented as of this encounter
--- OUTSIDE RECORDS SUMMARY | 2025-06-07 14:24 | XMS_ITS | Encounter Summary ---
Author Organization [employer] Address [address] [place] [address] 7 [place] [address] Care Team Providers Care Chainstitch Zipper Setter Name Role Phone Lore Preston Primary Care Provider [phone] Reason for Visit * Reason Onset Date Comments Nurse Triage 11/15/2022 Encounter Details Date Type Department Care Team ([facility] st Contact Info) Description 11/15/2022 Telephone [facility] MEDICINE [address] [place] [address] Lore Preston ANP [address] [place] [address] Nurse Triage Social History Tobacco Use Types Packs/Day Years Used Date Smoking Tobacco: Never Assessed Sex and Gender Information Value Date Recorded Sex Assigned at Male 04/08/2022 10:35 AM EDT Legal Sex Male 10:35 AM EDT Gender Identity Male 04/08/2022 10:35 AM EDT Sexual Orientation Berg 02/21/2023 1: 04 AM EDT documented as of this encounter Miscellaneous Notes * Telephone Encounter - Carly Castrejon - 11/15/2022 10:59 AM EDT Symptom: Rash or Redness - Widespread Outcome: Schedule a same-day appointment or talk to a nurse or provider today Reason: Caller denied all higher acuity questions The caller accepted this outcome Please contact pt at [phone] documented in this encounter Plan of Treatment Not on file documented as of this encounter Visit Diagnoses Not on filedocumented in this encounter Care Teams Chainstitch Zipper Setter Relationship Specialty Start Date End Date Lore Preston ANP [address] [place] [address] PCP - General Family Medicine 04/24/20 documented as of this encounter
--- OUTSIDE RECORDS SUMMARY | 2025-06-07 14:24 | XMS_ITS | Encounter Summary ---
Author Organization [employer] Address [address] [place] [address] Street 7t [place] [address] Care Team Providers Care Museum Guide Name Role Phone Lore Preston Primary Care Provider [phone] Encounter Details Date Type Department Care Team ([facility] st Contact Info) Description 08/29/2022 Orders Only [facility] MED & PEDS [address] [place] [address] Jenny Casarez LPN Social History Tobacco Use Types Packs/Day Years Used Date Smoking Tobacco: Never Assessed Sex and Gender Information Value Date Recorded Sex Assigned at Male 04/08/2022 10:35 AM EDT Legal Sex Male 10:35 AM EDT Gender Identity Male 04/08/2022 10:35 AM EDT Sexual Orientation Berg 02/21/2023 1: 04 AM EDT COVID-19 Exposure Response Date Recorded In the last 10 days, have yo u been in contact with someone who was confirmed or suspected to have Coronavirus/COVID-19? No / Unsure 08/26/2022 11:05 AM EDT documented as of this encounter Plan of Treatment Not on file documented as of this encounter Visit Diagnoses Not on filedocumented in this encounter Care Teams Museum Guide Relationship Specialty Start Date End Date Lore Preston ANP [address] [place] [address] PCP - General Family Medicine 04/24/20 documented as of this encounter
--- OUTSIDE RECORDS SUMMARY | 2025-06-07 14:24 | XMS_ITS | Encounter Summary ---
Author Organization [employer] Address [address] [place] [address] 7 [place] [address] Care Team Providers Care Dialer Name Role Phone Lore Preston Primary Care Provider [phone] Reason for Visit * Reason Comments Med Refill Encounter Details Date Type Department Care Team (Late st Contact Info) Description 08/31/2024 Refill [facility] MED & PEDS [address] [place] [address] Keyona Barber MD 230 [place] [address] Attention deficit hyperactivity disorder, combined type; Insomnia, [...] unspecified documented in this encounter Care Teams Dialer Relationship Specialty Start Date End Date Lore Preston ANP [address] [place] [address] PCP - General Family Medicine 04/24/20 documented as of this encounter
--- OUTSIDE RECORDS SUMMARY | 2025-06-07 14:24 | XMS_ITS | Encounter Summary ---
Author Organization [employer] Address [address] [facility] 7t [place] [address] Care Team Providers Care Vascular Surgeon Name Role Phone Lore Preston Primary Care Provider [phone] Reason for Visit * Reason Onset Date Comments Med Refill 04/01/2025 Encounter Details Date Type Department Care Team ([facility] st Contact Info) Description 04/01/2025 Refill [facility] MEDICINE [address] [place] [address] Lore Preston ANP [address] [place] [address] Attention deficit hyperactivity disorder, combined type Social History Tobacco Use Types Packs/Day Years [...] the past 12 months, has t he [employer], [employer], oil or water company threatened to shut [...] combined type Attention deficit disorder with hyperactivity documented in this encounter Care Teams Vascular Surgeon Relationship Specialty Start Date End Date Lore Perston ANP [address] [place] [id number] PCP - General Family Medicine 04/24/20 documented as of this encounter
--- OUTSIDE RECORDS SUMMARY | 2025-06-07 14:24 | XMS_ITS | Encounter Summary ---
Author Organization [employer] Address [address] [place] [address] Street 7t [place] [address] Care Team Providers Care Tactical Intelligence Officer Name Role Phone Lore Preston Primary Care Provider [phone] Encounter Details Date Type Department Care Team (Late st Contact Info) Description 09/18/2022 Orders Only [facility] CH[facility] MED & PEDS [address] [place] [address] Jenny Casarez LPN Social History Tobacco Use [...] on filedocumented in this encounter Care Teams Tactical Intelligence Officer Relationship Specialty Start Date End Date Lore Preston ANP 230 [place] [address] PCP - General Family Medicine 04/24/20 documented as of this encounter
--- OUTSIDE RECORDS SUMMARY | 2025-06-07 14:24 | XMS_ITS | Encounter Summary ---
Author Organization [employer] Address [address] [place] [address] 7 [place] [address] Care Team Providers Care Activities Director Scouting Name Role Phone Lore Preston Primary Care Provider [phone] Reason for Visit * Reason Comments Med Refill Encounter Details Date Type Department Care Team (Late st Contact Info) Description 08/21/2024 Refill [facility] MEDICINE [address] [place] [address] Lore Preston ANP [address] [place] [address] Difficulty sleeping Social History Tobacco Use Types Packs/Day Years [...] as of this encounter Visit Diagnoses Diagnosis Difficulty sleeping Unspecified sleep disturbance documented in this encounter Care Teams Activities Director Scouting Relationship Specialty Start Date End Date Lore Preston ANP [address] [place] [id number] PCP - General Family Medicine 04/24/20 documented as of this encounter
--- OUTSIDE RECORDS SUMMARY | 2025-06-07 14:24 | XMS_ITS | Encounter Summary ---
Author Organization [employer] Address [address] [place] [address] 7 [place] [address] Care Team Providers Care Journeyman Millwright Name Role Phone Lore Preston Primary Care Provider [phone] Reason for Visit * Reason Comments Med Refill Encounter Details Date Type Department Care Team (Late st Contact Info) Description 07/30/[address] [facility] MEDICINE [address] [place] [address] Lore Preston ANP 230 [place] [address] Insomnia, unspecified type; Attention deficit hyperactivity disorder, combined type; Anxiety Social History Tobacco Use Types [...] as of this encounter Visit Diagnoses Diagnosis Insomnia, unspecified type Attention deficit hyperactivity disorder, combined type Attention deficit disorder with hyperactivity Anxiety Anxiety state, unspecified documented in this encounter Care Teams Journeyman Millwright Relationship Specialty Start Date End Date Lore Preston ANP [address] [place] [address] PCP - General Family Medicine 04/24/20 documented as of this encounter
--- OUTSIDE RECORDS SUMMARY | 2025-06-07 14:24 | XMS_ITS | Encounter Summary ---
Author Organization [employer] [facility] Address [address] [place] [address] 7 [place] [address] Care Team Providers Care Pasteuriser Operator Name Role Phone Lore Preston Primary Care Provider [phone] Reason for Visit * Reason Onset Date Comments Med Refill 09/06/2023 Encounter Details Date Type Department Care Team (Late st Contact Info) Description 09/06/2023 Refill [facility] MEDICINE [address] [place] [address] Lore Preston ANP [address] [place] [address] Vitamin D deficiency; Essential hypertension; Wheezing; Difficulty sleeping Social History Tobacco Use Types [...] as of this encounter Visit Diagnoses Diagnosis Vitamin D deficiency Essential hypertension Unspecified essential hypertension Wheezing Difficulty sleeping Unspecified sleep disturbance documented in this encounter Care Teams Pasteuriser Operator Relationship Specialty Start Date End Date Lore Preston ANP [address] [place] [address] PCP - General Family Medicine 04/24/20 documented as of this encounter
--- OUTSIDE RECORDS SUMMARY | 2025-06-07 14:24 | XMS_ITS | Encounter Summary ---
Author Organization [employer] Address [address] [facility] 7 [place] [address] Care Team Providers Care Chief General Pediatric [facility] Name Role Phone Lore Preston Primary Care Provider [phone] Reason for Visit * Reason Comments Med Refill Encounter Details Date Type Department Care Team (Late st Contact Info) Description 02/01/2025 Refill [facility] MEDICINE [address] [place] [address] Lore Preston ANP [address] [place] [address] Mood disorder (CMS/HCC); Insomnia, unspecified type Social History Tobacco Use Types Packs/Day [...] the past 12 months, has t he [employer], gas, oil or water company threatened to [...] Mood disorder (CMS/HCC) Unspecified episodic mood disorder Insomnia, unspecified type documented in this encounter Care Teams Chief General Pediatric Clinic Relationship Specialty Start Date End Date Lore Preston ANP [address] [place] [address] PCP - General Family Medicine 04/24/20 documented as of this encounter
--- OUTSIDE RECORDS SUMMARY | 2025-06-07 14:24 | XMS_ITS | Encounter Summary ---
Author Organization [employer] Address [address] [place] [address] 7 [place] [address] Care Team Providers Care Stapler Machine Name Role Phone Lore Preston YESSY Primary Care Provider [phone] Reason for Visit * Reason Onset Date Comments Med Refill 03/20/2024 Encounter Details Date Type Department Care Team (Late st Contact Info) Description 03/20/[address] [facility] [address] [place] [address] Raina Wolf DDS [address] [place] [address] Social History Tobacco Use Types Packs/Day Years [...] encounter Miscellaneous Notes * Telephone Encounter - Raina Wolf DDS - 03/23/2024 3:03 PM EDT Approving, but needs appt for additional refills. documented in this encounter Plan of Treatment Not on file documented as of this encounter Visit Diagnoses Not on filedocumented in this encounter Care Teams Stapler Machine Relationship Specialty Start Date End Date Lore Preston ANP [address] [place] [address] PCP - General Family Medicine 04/24/20 documented as of this encounter
--- OUTSIDE RECORDS SUMMARY | 2025-06-07 14:24 | XMS_ITS | Encounter Summary ---
Author Organization [employer] Address [address] [place] [address] 7 [place] [address] Care Team Providers Care Centerless Grinder Tender Name Role Phone Lore Preston Primary Care Provider [phone] Reason for Visit * Reason Comments Med Refill Encounter Details Date Type Department Care Team (Late st Contact Info) Description 03/14/2023 Refill [facility] MEDICINE [address] [place] [address] Leon Mnior MD [address] [place] [address] Social History Tobacco Use Types Packs/Day Years [...] on filedocumented in this encounter Care Teams Centerless Grinder Tender Relationship Specialty Start Date End Date Lore Preston ANP [address] [place] [address] PCP - General Family Medicine 04/24/20 documented as of this encounter
--- OUTSIDE RECORDS SUMMARY | 2025-06-07 14:24 | XMS_ITS | Encounter Summary ---
Author Organization [employer] Address [address] [place] [address] 7 [place] [address] Care Team Providers Care Service Order Expediter Name Role Phone Lore Preston Primary Care Provider [phone] Reason for Visit * Reason Comments Med Refill Encounter Details Date Type Department Care Team (Late st Contact Info) Description 12/04/2024 Refill [facility] MEDICINE [address] [place] [address] Lore Preston ANP [address] [place] [address] Wheezing Social History Tobacco Use Types Packs/Day Years [...] as of this encounter Visit Diagnoses Diagnosis Wheezing documented in this encounter Care Teams Service Order Expediter Relationship Specialty Start Date End Date Lore Preston ANP [address] [place] [address] PCP - General Family Medicine 04/24/20 documented as of this encounter
--- OUTSIDE RECORDS SUMMARY | 2025-06-07 14:25 | XMS_ITS | Encounter Summary ---
Author Organization [employer] Address [address] [place] [address] 7t [place] [address] Care Team Providers Care Automotive Window Tinter Name Role Phone Lore Preston Primary Care Provider [phone] Encounter Details Date Type Department Care Team (Late st Contact Info) Description 06/11/2022 Orders Only [facility] CH[facility] MED & PEDS [address] [place] [address] Jenny Casarez LPN Social History Tobacco Use [...] on filedocumented in this encounter Care Teams Automotive Window Tinter Relationship Specialty Start Date End Date Lore Preston ANP [address] [place] [address] PCP - General Family Medicine 04/24/20 documented as of this encounter
--- OUTSIDE RECORDS SUMMARY | 2025-06-07 14:25 | XMS_ITS | Encounter Summary ---
Author Organization [employer] Address [address] [place] [address] 7 [place] [address] Care Team Providers Care Janitorial Maintenance Worker Name Role Phone Lore Preston Primary Care Provider [phone] Reason for Visit * Reason Comments Med Refill Encounter Details Date Type Department Care Team (Late st Contact Info) Description 06/29/2024 Refill [facility] MEDICINE [address] [place] [address] Lore Preston ANP [address] [place] [address] Social History Tobacco Use Types Packs/Day Years [...] on filedocumented in this encounter Care Teams Janitorial Maintenance Worker Relationship Specialty Start Date End Date Lore Preston ANP [address] [place], [place] [phone] PCP - General Family Medicine 04/24/20 documented as of this encounter
--- OUTSIDE RECORDS SUMMARY | 2025-06-07 14:25 | XMS_ITS | Encounter Summary ---
Author Organization [employer] Address [address] [place] [address] 7 [place] [address] Care Team Providers Care Dance Master Name Role Phone Lore Preston Primary Care Provider [phone] Reason for Visit * Reason Comments Med Refill Encounter Details Date Type Department Care Team (Late st Contact Info) Description 03/02/2024 Refill [facility] MEDICINE [address] [place] [address] Leanna Taylor MD [address] [place] [address] Social History Tobacco Use Types Packs/Day Years [...] on filedocumented in this encounter Care Teams Dance Master Relationship Specialty Start Date End Date Lore Preston ANP [address] [place] [address] PCP - General Family Medicine 04/24/20 documented as of this encounter
--- OUTSIDE RECORDS SUMMARY | 2025-06-07 14:25 | XMS_ITS | Encounter Summary ---
Author Organization [employer] Address [address] [place] [address] 7 [place] [address] Care Team Providers Care Insole Bottom Filler Name Role Phone Lore Preston Primary Care Provider [phone] Reason for Visit * Reason Comments Med Refill Encounter Details Date Type Department Care Team (Late st Contact Info) Description 06/29/2024 Refill [facility] MEDICINE [address] [place] [address] Lore Preston ANP [address] [place] [address] Attention-deficit hyperactivity disorder, combined type Social History Tobacco [...] as of this encounter Visit Diagnoses Diagnosis Attention-deficit hyperactivity disorder, combined type documented in this encounter Care Teams Insole Bottom Filler Relationship Specialty Start Date End Date Lore Preston ANP [address] [place] [address] PCP - General Family Medicine 04/24/20 documented as of this encounter
--- OUTSIDE RECORDS SUMMARY | 2025-06-07 14:25 | XMS_ITS | Clinical Summary ---
Author Organization [employer] Address [address] [facility] [address] [place] [address] Care Team Providers Care Dealer Card Room Name Role Phone Lore Preston YESSY Primary Care Provider [phone] Allergies Active Allergy Reactions Criticality Noted Date Comments Acetaminophen-Codeine 02/13/2023 Medications * This document contains information received from the source organization and may not represent a complete record from that organization. Blood Pressure kitIndications:H ypertension, unspecified type 1 kit Once per day. 1 kit 03/23/20 24 Active clonazePAM (KlonoPIN) 1 MG tabletIndication s:Anxiety 1 tab BID as needed for anxiety 60 tablet 09/01/19 25 Active omeprazole (PriLOSEC) [address] capsuleIndicatio ns:Gastroesophag eal reflux disease, unspecified whether esophagitis present TAKE 1 CAPSULE BY MOUTH TWICE DAILY IN THE MORNING AND IN THE EVENING BEFORE BREAKFAST AND BEFORE SUPPER. DO NOT BREAK, CRUSH, DISSOLVE OR CHEW. 180 capsule 1 5 8:53 AM EST 12/30/19 25 Active ketoconazole (NIZOral) 2 % shampooIndicatio ns:Skin rash Use as shampoo and leave on skin for 5 minutes for 3 days in a row at least once weekly 480 mL 1 5 8:53 AM EST 12/30/19 25 Active amphetamine-dext roamphetamine (Adderall) 30 MG tabletIndication s:Attention deficit hyperactivity disorder, combined type Take 1 tablet (30 mg) by mouth 2 times daily. 60 tablet 01/05/20 25 Active Ventolin HFA 108 (90 Base) MCG/ACT inhalerIndicatio ns:Wheezing INHALE 2 PUFFS BY MOUTH EVERY 4 TO 6 HOURS NEEDED 18 g 01/22/20 25 Active zolpidem (Ambien) 10 MG tabletIndication s:Insomnia, unspecified type Take 1 tablet (10 mg) by mouth if needed at bedtime for sleep. 28 tablet 02/04/20 25 Active ARIPiprazole (Abilify) 10 MG tabletIndication s:Mood disorder (CMS/HCC) Take 1 tablet (10 mg) by mouth in the morning. 30 tablet 02/04/20 25 Active amLODIPine (Norvasc) 5 MG tabletIndication s:Essential hypertension Take 1 tablet by mouth every day 90 tablet 1 5 3:43 PM EST 02/04/20 25 Active budesonide-formo terol (Symbicort) 80-4.5 MCG/ACT inhalerIndicatio ns:Wheezing Inhale 2 puffs in the morning and at bedtime. May also use as needed up to every 6 hours for shortness of breath. Rinse mouth with water after use to reduce aftertaste and incidence of candidiasis. Do not swallow. 1 each 5 3:43 PM EST 02/19/20 25 026 Active ciclopirox (Loprox) 0.77 % creamIndications :Skin rash APPLY TOPICALLY TO THE AFFECTED AREA(S) TWICE DAILY DIRECTED 90 g 2 5 3:43 PM EST 04/14/20 25 Active FLUoxetine (PROzac) 20 MG capsuleIndicatio ns:Mood disorder (CMS/HCC) TAKE 1 CAPSULE BY MOUTH ONCE DAILY 30 capsule 5 3:43 PM EST 05/18/20 25 Active cholecalciferol VITAMIN D (Vitamin D-3) 50 MCG (1999 UT) tabletIndication s:Vitamin D deficiency TAKE 1 TABLET BY MOUTH EVERY DAY 90 tablet 1 5 3:43 PM EST 05/18/20 25 Active hydrOXYzine pamoate (Vistaril) 100 MG capsuleIndicatio ns:Difficulty sleeping TAKE 1 CAPSULE BY MOUTH AT BEDTIME NEEDED FOR ANXIETY 30 capsule 05/27/20 25 Active cholecalciferol VITAMIN D (Vitamin D-3) 50 MCG (1999 UT) tabletIndication s:Vitamin D deficiency TAKE 1 TABLET BY MOUTH EVERY DAY 90 tablet 1 10/26/19 025 Discontinued FLUoxetine (PROzac) 20 MG capsuleIndicatio ns:Mood disorder (CMS/HCC) TAKE 1 CAPSULE BY MOUTH ONCE DAILY 30 capsule 8:53 AM EST 04/13/20 025 Discontinued hydrOXYzine pamoate (Vistaril) 100 MG capsuleIndicatio ns:Difficulty sleeping TAKE 1 CAPSULE BY MOUTH AT BEDTIME NEEDED FOR ANXIETY 30 capsule 04/13/20 025 Discontinued Active Problems Problem Noted Date Diagnosed Date Marijuana use, continuous 08/12/2024 Skin rash 02/13/2023 Assessment & Plan (02/13/2023 5:56 PM EDT): Pt w chronic skin rash in chest and back 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 Not responsive to ketoconazole shampoo -will try empiric tx selenium shampo - for 10 min daily then rinse for 4 weeks -to f up w PCP in 4 weeks -if no improvement may need to consider to do skin test for fungal cx and or dermatology referral -consider fluconazole or itraconazole today however risk for med interactions specially with abilify with risk of QTC prolongation -but if not improvement may need to try fluconazole 300 mg weekly for 2 weeks with previous EKG eval -in regards penile lesions -per pt the are chronic and noted to come and go w no symptoms -states to be with only one male partner for the past 5 years ---pt agreed today for STI testing --will need as well to f w PCP if lesions persist to be referred to dermatology Hypertension 02/13/2023 Assessment & Plan (02/13/2023 5:53 PM EDT): Elevated BP -pt no taking amlodipine -advised pt to avoid tobacco use and to take BP med as rec -to f w PCP in 4 weeks Alcohol abuse 02/13/2023 Assessment & Plan (02/13/2023 5:55 PM EDT): Reports hx of heavier alcohol use and now reduced to 4 cans of large beers twice a week -advised trying to decrease consumption -offered CRS referral but wants to hold for now Attention deficit hyperactivity disorder, combin ed type 02/05/2023 Atypical chest pain 02/05/2023 Mild intermittent asthma 02/05/2023 Posttraumatic stress disorder 02/05/2023 Restless legs 02/05/2023 Tobacco dependence syndrome 02/05/2023 Assessment & Plan (02/13/2023 5:47 PM EDT): Active tobacco smoker -offered today tobacco cessation program -pt accepted- referred today Resolved Problems Problem Noted Date Diagnosed Date Resolved Date Substance abuse (CMS/HCC) 02/05/2023 Encounters Date Type Department Care Team Description 05/26/2025 Refill [facility] [address] [place] [phone] Lore Preston ANP Difficulty sleeping 05/18/2025 Refill [facility] [address] [place] [phone] Lore Preston ANP Vitamin D deficiency 05/17/2025 Refill [facility] [address] [place] [phone] Lore Preston ANP Mood disorder ([facility]/HCC) 05/03/2025 Telephone [facility] [address] [place] [phone] Lore Preston ANP chart prep 04/26/2025 Patient Outreach [facility] [address] [place] [phone] Lore Preston ANP Pre-visit Planning (SDOH screening was completed on 12/29/2024) 04/14/2025 Refill [facility] [address] [place] [phone] Lore Preston ANP Skin rash 04/12/2025 Refill [facility] [address] [place] [phone] Lore Preston ANP Mood disorder ([facility]); Difficulty sleeping 04/04/2025 Orders Only [facility] [address] [place] [phone] Lore Preston ANP 04/01/2025 Refill [facility] [address] [place] [address] [phone] Lore Preston ANP Attention deficit hyperactivity disorder, combined type 03/10/2025 Telephone [facility] [address] [place] [address] Lore Preston ANP Medication Question 03/08/2025 Refill [facility] [address] [place] [address] Lore Preston ANP Difficulty sleeping from Last 3 Months Immunizations Immunization Administration Dates Next Due Influenza injectable quadriv alent IIV4 with preservative 05/20/2019 Influenza injectable quadriv alent preservative free 04/02/2023,03/01/2022,03/15/2016 Pfizer Covid-19 Vaccine 12+ Bivalent 08/26/2022 Tdap 07/26/2020,05/20/2019 Social History Tobacco Use Types Packs/Day Years Used Date Smoking Tobacco: Every Day Cigarettes Passive Smoke Exposure: Current Smokeless Tobacco: Never Tobacco Cessation:Ready to Q uit: Not Asked; Counseling Given: Not Answered Housing Stability Answer Date Recorded What is [...] Orientation Berg 02/21/2023 1: 04 AM EDT Last Filed Vital Signs Vital Sign Reading Time Taken Comments Blood Pressure 128/92 12/29/2024 2:58 PM EDT Pulse 90 01/07/2024 10:51 AM EDT Temperature 36.2 C (97.1 F) 01/07/2024 10:51 AM EDT Respiratory Rate 20 12/29/2024 2:58 PM EDT Oxygen Saturation 99% 01/07/2024 10:51 AM EDT Inhaled Oxygen Concentration - - Weight 84.4 kg (186 lb) 12/29/2024 2:58 PM EDT Height 185.4 cm (6' 1 ) 12/29/2024 2:58 PM EDT Body Mass Index 24.54 12/29/2024 2:58 PM EDT Plan of Treatment Health Maintenance Due Date Last Done Comments Dental Oral Exam 1986 Dental Prophylaxis 1986 Dental X-Ray: Bitewings 1986 Depression Screening 1986 Family Planning (PISQ) 2001 HPV Vaccines (1 - Male 3-dose series) 2001 Hepatitis B Vaccines (1 of 3 - 19+ 3-dose series) 2005 Pneumococcal Vaccine: Pediatrics (0 to 5 Years) and At-Risk Patients (6 to 49) Years (1 of 2 - PCV) 2005 COVID-19 Vaccine ( - season) 2025 08/26/2022, 04/04/2021, 03/14/2021 Influenza Vaccine (#1) 2025 , 03/01/2022, 05/20/2019, Additional history exists Alcohol/Substance Use Screening 12/29/2025 12/29/2024 Disability Screening 12/29/2025 12/29/2024 SDOH Screening 12/29/2025 12/29/2024 Tobacco Screening 12/29/2025 12/29/2024 Dental X-Ray: Full Mouth 03/09/2027 03/08/2024 Lipid Panel 12/29/2029 12/29/2024, 12/08, 12/15/2023, Additional history exists DTaP/Tdap/Td Vaccines (3 - Td or Tdap) 07/26/2030 07/26/2020, 05/20/2019 Zoster Vaccines (1 of 2) 2036 RSV Patients and Patients Aged 60 years or older (1 - 1-dose 75+ series) 2061 HIV Screening Completed 02/13/2023, 11/02/2021 Hepatitis C Screening Completed 02/13/2023, 022 HIB Vaccines Aged Out No longer eligi ble based on patient's age to complete this topic Hepatitis A Vaccines Aged Out No long er eligible based on patient's age to complete this topic IPV Vaccines Aged Out No longer eligi ble based on patient's age to complete this topic Meningococcal B Vaccine Aged Out No l onger eligible based on patient's age to complete this topic Meningococcal Vaccine Aged Out No mady guille eligible based on patient's age to complete this topic RSV under 20 months Aged Out No longe r eligible based on patient's age to complete this topic Rotavirus Vaccines Aged Out No longer eligible based on patient's age to complete this topic Procedures Procedure Name Priority Date/Time Associated Diagnosis Comments LIPID PANEL, STANDARD Routine 12/29/2024 4:13 PM EDT Hypertriglyceridemi a PANORAMIC RADIOGRAPHIC IMAGE Routine 03/08/2024 3:30 PM EDT Dental caries Dental abscess HEPATITIS C AB W/REFL TO HCV RNA, QN, PCR Routine 02/13/2023 2:27 PM EDT Health care maintenance HIV ANTIBODY/ANTIGEN ([place] [facility]) Routine 02/13/2023 2:26 PM EDT from Last 3 Months or Most Recently Relevant to Health Maintenance Results * (ABNORMAL) Lipid Panel, Standard (12/29/2024 4:13 PM EDT) Triglycerides 246(H) <150 mg/dL [facility] Comment:Desirable Triglyceri de: less than 150 mg/dLBorderline High Triglyceride 150-199 mg/dLHigh Triglyceride: 200-499 mg/dLVery High Triglyceride: greater than or equal to 5OO mg/dL Cholesterol 193 <200 mg/dL [facility] Comment:Desirable Cholestero l: less than 200 mg/dLBorderline High Cholesterol: 200-239 mg/dLHigh Cholesterol: greater than 239 mg/dL LDL Cholesterol Calculated 97 <100 mg/dL [facility] Comment:Desirable LDL: less than 100 mg/dLNear Optimal/Above Optimal LDL: 110- 129 mg/dLBorderline High LDL: 130-159 mg/dLHigh LDL: 160-189 mg/dLVery High LDL: greater than or equal to 190 mg/dL HDL Cholesterol 47 >40 mg/dL [facility] Comment:Desirable HDL: great er than 40 mg/dL Note: This HDL assay may give artificially low results in patients with liver disease. Blood Venous blood specimen / Unknown 12/29/2024 4:13 PM EDT 12/29/2024 5:33 PM EDT us Lore KRISHNAMURTHY LAB BLOOD ORDERABLES Final Resul t Performing Organization Address City/[facility]/ZIP Co de Phone Number [facility] [address] [place] [phone] [phone] * Hepatitis C Antibody with Reflex to HCV, RNA, Quantitative, Real-Time PCR (02/13/2023 2:27 PM EDT) Hepatitis C Antibody Nonreactive Nonreactive [facility] Comment:Antibodies to HCV no t detected; does not exclude early acuteHCV infection. Blood Venous blood specimen / Unknown 02/13/2023 2:27 PM EDT 02/13/2023 3:56 PM EDT us Concepcion Tyler MD LAB BLOOD ORDERAB LES Final Result Performing Organization Address City/[facility]/ZIP Co de Phone Number [facility] [address] [place] [phone] [phone] * HIV Ab/Ag ([facility]) (02/13/2023 2:26 PM EDT) HIV AB/AG Nonreactive Nonreactive [facility] Comment:HIV-1 p24 Ag and/or HIV-1/HIV-2 Ab not detected.A test result that is nonreactive does not exclude thepossibility of exposure to or infection with HIV-1 and/orHIV-2. Nonreactive results in this assay for individualswith prior exposure to HIV-1 and/or HIV-2 may be due toantigen and antibody levels that are below the limit ofdetection of this assay.The [employer] Alinity HIV Ag/Ab Combo assay result andsupplemental assay results should be interpreted inconjunction with the patient's clinical presentation,history and other laboratory results. If the results areinconsistent with clinical evidence, additional testing issuggested to confirm the result. 02/13/2023 2:26 PM EDT 02/13/2023 3:56 PM EDT us Concepcion Tyler MD LAB BLOOD ORDERAB LES Final Result [facility] [address] [place] [phone] from Last 3 Months or Most Recently Relevant to Health Maintenance Insurance [id number] STAND ADULT Care Teams Dealer Card Room Relationship Specialty Start Date End Date Lore Preston ANP [address] [place] [phone] PCP - General Family Medicine 04/24/20
--- OUTSIDE RECORDS SUMMARY | 2025-06-07 14:25 | XMS_ITS | Encounter Summary ---
Author Organization [email or web address] Address [address] [place] [address] [address] [place] [address] Care Team Providers Care Spray Machine Operator Name Role Phone Lore Preston Primary Care Provider [phone] Encounter Details Date Type Department Care Team (Late st Contact Info) Description 07/02/2022 Orders Only [facility] [address] [place] [address] Jenny Casarez LPN Social History Tobacco Use [...] on filedocumented in this encounter Care Teams Spray Machine Operator Relationship Specialty Start Date End Date Lore Preston ANP [address] [place] [phone] PCP - General Family Medicine 04/24/20 documented as of this encounter
--- OUTSIDE RECORDS SUMMARY | 2025-06-07 14:25 | XMS_ITS | Encounter Summary ---
Author Organization [employer] Address [address] [place] [address] [address] [place] [address] Care Team Providers Care Concrete Block Maker Name Role Phone Lore Preston Primary Care Provider [phone] Reason for Visit * Reason Comments Med Refill Encounter Details Date Type Department Care Team (Late st Contact Info) Description 06/25/2024 Refill [facility] [address] [place] [address] Lore Preston ANP [address] [place] [address] Attention-deficit hyperactivity disorder, combined type Social History [...] type documented in this encounter Care Teams Concrete Block Maker Relationship Specialty Start Date End Date Lore Preston ANP [address] [place] [address] PCP - General Family Medicine 04/24/20 documented as of this encounter
== END 2025-06-07 13:24 | disposition home or self-care (01) ==
PROVIDERS: Emergency Provider Emergency Medicine; PCP Nurse Practitioner Primary Care
DX: F10.920 Alcohol use, unspecified with intoxication, uncomplicated (principal); Y90.6 Blood alcohol level of 120-199 mg/100 ml; R45.851 Suicidal ideations; F31.9 Bipolar disorder, unspecified; F90.9 Attention-deficit hyperactivity disorder, unspecified type; F19.10 Other psychoactive substance abuse, uncomplicated; J45.909 Unspecified asthma, uncomplicated; Z79.899 Other long term (current) drug therapy
CPT/HCPCS: 36415; 80053; 80307; 85025; 99283; 99285; S9485